=== PATIENT | male | born 2000 | race Two or more races ===

== ENCOUNTER 2025-06-02 06:31 | Day surgery (SDC) | payer BC, OTHER ==
[~2025-06-02 06:31] MED LIST: ceFAZolin 2 GM in Water For Injection, Sterile 20 ML IVPUSH ONE
[2025-06-02] MEDS ORDERED: fentaNYL 50 MCG/ML SDV IVPUSH PRN (06:40)
[2025-06-02] MEDS ORDERED: Albuterol 0.083% 2.5 MG/3 ML Neb Soln NEB PRN (06:40)
[2025-06-02] MEDS ORDERED: Ondansetron 4 MG/2 ML SDV IVPUSH PRN (06:40)
[2025-06-02] MEDS ORDERED: Naloxone 0.4 MG/ML SDV IVPUSH PRN (06:40)
[2025-06-02] MEDS ORDERED: Ropivacaine 0.5% 5 MG/ML 30 ML SDV ONE (06:47)
[2025-06-02] MEDS ORDERED: fentaNYL 100 MCG/2 ML SDV ONE (06:47)
[2025-06-02] MEDS ORDERED: Dexamethasone 4 MG/ML 5 ML MDV ONE (06:47)
[2025-06-02] MEDS ORDERED: Propofol 200 MG/20 ML SDV ONE ×2 (06:47→08:05)
[2025-06-02] MEDS ORDERED: Ondansetron 4 MG/2 ML SDV ONE (06:47)
[2025-06-02] MEDS ORDERED: dexmedeTOMIDine HCl 200 MCG/2 ML SDV ONE (06:50)
[2025-06-02] MEDS: Lactated Ringers 1,000 ML IV SCH (07:16)
[2025-06-02] MEDS ORDERED: Morphine 10 MG/ML SDV ONE (07:41)
== END 2025-06-02 11:00 | disposition home or self-care (01) ==
LOC: MW.SDS 06:31
PROVIDERS: ATTEND Surgery
DX: K43.9 Ventral hernia without obstruction or gangrene (principal); I10 Essential (primary) hypertension; Z91.09 Other allergy status, other than to drugs and biological substances; Z79.899 Other long term (current) drug therapy
CPT/HCPCS: 00750; 64488; A9270-GY; J0665; J1100; J2003; J2272; J2405; J2704; J2795; J3010; J3490; J7120

== ENCOUNTER 2025-06-14 15:10 | Emergency (ER) | payer OTHER | END 2025-06-14 16:25 | disposition home or self-care (01) | LOC: MW.ED 15:10 | DX: R21 Rash and other nonspecific skin eruption (principal) | CPT/HCPCS: 99282; 99283 ==